=== PATIENT | male | born 1965 | race American Indian/Alaskan Native ===

== ENCOUNTER 2021-03-14 07:07 | Emergency (ER) | payer OTHER ==
--- NOTE | 2021-03-14 07:11 | Emergency Department Report ---
ED Neuro Deficit HPI - General Chief Complaint: Neuro Symptoms/Deficit Stated Complaint: Left-sided facial droop, right arm numbness, nausea and vomiting Time Seen by Provider: 03/14/21 07:10 Source: patient, EMS (Verbal report received from emergency medical services. EMS documentation not available at time of chart dictation ), RN notes reviewed, old records reviewed Mode of arrival: Stretcher Limitations: Physical Limitation - History of Present Illness Initial Comments: The patient was evaluated in the emergency department for symptoms described in the history of present illness. He/she was evaluated in the context of the global COVID-19 pandemic, which necessitated consideration that the patient might be at risk for infection with the virus that causes COVID-19. Institutional protocols and algorithms that pertain to the evaluation of p atients at risk for COVID-19 are in a state of rapid change based on information released by regulatory bodies including the CDC and federal and state organizations. These policies and algorithms were followed during the patient's care in the emergency department. Please note that these policies, procedures and recommendations changed on a rapid basis. Primary CARE doctor: Douglas ortiz. The patient is a 55-year-old gentleman. He is not known to myself previously. He appears to have a history of hypertension. As per EMS documentation, they responded to a call for left-sided weakness and dizziness for 10 hours. Patient's last known well time is 9:00 PM, March 13, 2021. Patient states that he felt like he had left-sided facial droop, with dizziness, and right arm numbness. He denies physical pain. He denies Covid symptomatology. While in the emergency room, he developed nausea and vomiting. EMS did not perform an Accu-Chek in the field. A code stroke is called overhead. A noncontrast CT scan of the brain is negative for acute findings. Patient actively vomiting in the ER, with a blood pressure 225/140. Not a TPA candidate as symptoms greater in duration than 4.5 hours. This is unlikely to be a large vessel occlusion given exam and NIH score. However, emergent CT angiogram is recommended by our consulting neurologist, Dr. Vernon. Given initial hypertension, antihypertensive control is recommended. Labetalol ordered, blood pressure now improved, 212/109, felt improved after Zofran. CT angiogram head and neck pending at this time. -: Sudden, hour(s) Location: left face, right arm Presenting Symptoms: Present: Facial Droop/Numbness History of same: No Place: home Severity: severe Quality: numb Improves With: none Worsens With: none On Anticoagulants: No Context: sudden onset - Related Data Home Medications: Home Medications Medication Instructions Recorded Confirmed Last Taken Aspirin 325 mg PO QDAY 11/22/15 12/21/15 12/21/15 Pantoprazole [Protonix TAB] 40 mg PO QDAY 11/22/15 12/21/15 11/22/15 Metoprolol Xl [Metoprolol 100 mg PO QDAY 12/21/15 12/21/15 12/21/15 SUCCINATE ER TAB] cloNIDine [Catapres] 0.1 mg PO QHS PRN 12/21/15 12/21/15 Unknown hydroCHLOROthiazide [Hctz] 12.5 mg PO QDAY 12/21/15 12/21/15 12/21/15 Previous Rx's Medication Instructions Recorded Last Taken Type AtorvaSTATin [Lipitor] 20 mg PO QHS #30 tablet 11/23/15 12/20/15 Rx Losartan/Hydrochlorothiazide 1 each PO QDAY #30 tablet 11/23/15 Unknown Rx [Hyzaar 100-25 TAB] Allergies/Adverse Reactions: Allergies Allergy/AdvReac Type Severity Reaction Status Date / Time No Known Allergies Allergy Unverified 11/22/15 12:32 ED Review of Systems ROS: Stated complaint: LEFT SIDED WEAKNESS Other details as noted in HPI Constitutional: other (Denies loss of taste and smell). denies: fever Eyes: denies: eye discharge Respiratory: denies: cough Cardiovascular: denies: chest pain Gastrointestinal: nausea, vomiting. denies: abdominal pain Musculoskeletal: denies: back pain Neurological: weakness, numbness Hematological/Lymphatic: denies: easy bleeding ED Past Medical Hx - Past Medical History Hx Hypertension: Yes Hx Congestive Heart Failure: No Hx Diabetes: No Hx Asthma: No Hx COPD: No - Surgical History Additional Surgical History: INGROWN TOENAIL - Social History Smoking Status: Never Smoker Substance Use Type: None - Medications Home Medications: Home Medications Medication Instructions Recorded Confirmed Last Taken Type Aspirin 325 mg PO QDAY 11/22/15 12/21/15 12/21/15 History Pantoprazole [Protonix TAB] 40 mg PO QDAY 11/22/15 12/21/15 11/22/15 History AtorvaSTATin [Lipitor] 20 mg PO QHS #30 tablet 11/23/15 12/21/15 12/20/15 Rx Losartan/Hydrochlorothiazide 1 each PO QDAY #30 tablet 11/23/15 Unknown Rx [Hyzaar 100-25 TAB] Metoprolol Xl [Metoprolol 100 mg PO QDAY 12/21/15 12/21/15 12/21/15 History SUCCINATE ER TAB] cloNIDine [Catapres] 0.1 mg PO QHS PRN 12/21/15 12/21/15 Unknown History hydroCHLOROthiazide [Hctz] 12.5 mg PO QDAY 12/21/15 12/21/15 12/21/15 History ED Neuro Physical Exam - General Limitations: Physical Limitation General appearance: alert, anxious, obese Suspected Stroke: Yes - Head Head exam: Present: atraumatic, normocephalic - Eye Eye exam: Present: normal appearance, EOMI. Absent: nystagmus - ENT ENT exam: Present: normal exam, normal orophraynx, mucous membranes moist, normal external ear exam, other (There is left-sided facial droop. There is left side forehead paralysis) - Neck Neck exam: Present: normal inspection, full ROM. Absent: tenderness, meningismus - Respiratory Respiratory exam: Present: normal lung sounds bilaterally. Absent: respiratory distress, wheezes, rales, rhonchi, stridor, decreased breath sounds - Cardiovascular Cardiovascular Exam: Present: regular rate, normal rhythm, normal heart sounds. Absent: bradycardia, tachycardia, irregular rhythm, systolic murmur, diastolic murmur, rubs, gallop - GI/Abdominal GI/Abdominal exam: Present: soft. Absent: distended, tenderness, guarding, rebound, rigid, pulsatile mass - Rectal Rectal exam: Present: deferred - Extremities Exam Extremities exam: Present: normal inspection, full ROM, other (2+ pulses noted in the bilateral upper and lower extremities. There is no palpable cord. negative Homans sign. Muscular compartments are soft. The pelvis is stable.). Absent: pedal edema, calf tenderness - Back Exam Back exam: Present: normal inspection. Absent: tenderness, CVA tenderness (R), CVA tenderness (L), paraspinal tenderness, vertebral tenderness - Neurological Exam Neurological exam: Present: alert, oriented X3, motor sensory deficit (There is decreased sensation to light touch in the right arm.), other (There is left- sided facial droop. The tongue is midline. The extraocular movements are intact bilaterally. There is 5 out of 5 strength in 4 extremities.) - NIHSS Assessment Interval: Baseline 1a. Level of Consciousness: alert/keenly responsive 1b. LOC Questions: answers both correctly 1c. LOC Commands: performs tasks correctly 2. Best Gaze: normal 3. Visual: no visual loss 4. Facial Palsy: unilateral complete paralysis 5b. Motor Arm Right: no drift 5a. Motor Arm Left: no drift 6a. Motor Leg Left: no drift 6b. Motor Leg Right: no drift 7. Limb Ataxia: absent 8. Sensory: mild/moderate sensory loss 9. Best Language: no aphasia 10. Dysarthria: normal 11. Extinction/Inattention: no abnormality Total Score: 4 Stroke Severity: Minor Stroke - Psychiatric Psychiatric exam: Present: anxious - Skin Skin exam: Present: warm, dry, intact, normal color. Absent: rash ED Course Vital Signs 03/14/21 03/14/21 03/14/21 07:43 07:45 08:01 Temperature Pulse Rate 95 H 93 H 83 Respiratory 11 L 19 18 Rate Blood Pressure 235/138 212/113 O2 Sat by Pulse 97 96 Oximetry 03/14/21 03/14/21 08:15 08:38 Temperature 97.6 F Pulse Rate 76 Respiratory 17 Rate Blood Pressure 198/107 O2 Sat by Pulse 94 Oximetry - Reevaluation(s) Reevaluation #1: 03/14/21 08:20 Differential diagnosis, including but not limited to: June's palsy, stroke, hypertensive urgency/emergency Assessment and plan: 55-year-old gentleman, with left-sided facial droop and numbness, forehead paralysis, right-sided numbness, elevated blood pressure, with nausea and vomiting. Not a TPA candidate as symptoms present for greater than 4.5 hours. NIH score of 4. This is unlikely to be a large vessel occlusion or dissection. However, we will obtain emergent CT angiogram head and neck. Antihypertensive therapy was administered, blood pressure is improved. Disposition as per CT angiogram. We will also discussed with the [facility]. Have discussed this plan of care with the patient, who articulated understanding. 03/14/21 10:13 CT angiogram head and neck negative for acute findings. Contacted [facility] physician, Dr. Lobo, discussed patient's history, physical, pertinent laboratory studies, imaging findings, and overall clinical impression. Dr. Bette Orr is accepting MD at [facility]. Patient updated on plan of care and findings. - Lab Data Result diagrams: 03/14/21 07:47 03/14/21 07:47 Lab Results 03/14/21 03/14/21 03/14/21 Range/Units 07:47 07:47 07:47 WBC 8.9 (4.5-11.0) K/mm3 RBC 4.91 (3.65-5.03) M/mm3 Hgb 15.7 H (11.8-15.2) gm/dl Hct 45.4 (35.5-45.6) % MCV 92 (84-94) fl MCH 32 (28-32) pg MCHC 35 H (32-34) % RDW 15.0 (13.2-15.2) % Plt Count 174 (140-440) K/mm3 Lymph % (Auto) 9.0 L (13.4-35.0) % [place] % (Auto) 3.1 (0.0-7.3) % Eos % (Auto) 0.0 (0.0-4.3) % Baso % (Auto) 0.2 (0.0-1.8) % Lymph # (Auto) 0.8 L (1.2-5.4) K/mm3 [place] # (Auto) 0.3 (0.0-0.8) K/mm3 Eos # (Auto) 0.0 (0.0-0.4) K/mm3 Baso # (Auto) 0.0 (0.0-0.1) K/mm3 Seg Neutrophils % 87.7 H (40.0-70.0) % Seg Neutrophils # 7.8 H (1.8-7.7) K/mm3 PT 13.0 (12.2-14.9) Sec. INR 0.92 (0.87-1.13) APTT 30.9 (24.2-36.6) Sec. Thrombin Time 18.0 (15.1-19.6) Sec. Sodium 139 (137-145) mmol/L Potassium 3.8 (3.6-5.0) mmol/L Chloride 100.5 (98-107) mmol/L Carbon Dioxide 20 L (22-30) mmol/L Anion Gap 22 mmol/L BUN 17 (9-20) mg/dL Creatinine 0.8 (0.8-1.3) mg/dL Estimated GFR > 60 ml/min BUN/Creatinine Ratio 21 % Glucose 143 H (75-100) mg/dL Calcium 9.3 (8.4-10.2) mg/dL Magnesium 2.30 (1.7-2.3) mg/dL Total Bilirubin 0.30 (0.1-1.2) mg/dL AST 25 (5-40) units/L ALT 20 (7-56) units/L Alkaline Phosphatase 89 (35-129) units/L Total Creatine Kinase 111 (55-170) units/L CK-MB (CK-2) 3.1 (0.0-4.0) ng/mL CK-MB (CK-2) Rel Index 2.7 (0-4) Troponin T < 0.010 (0.00-0.029) ng/mL Total Protein 8.2 (6.3-8.2) g/dL Albumin 4.5 (3.9-5) g/dL Albumin/Globulin Ratio 1.2 % Plasma/Serum Alcohol (0-0.07) % // Range/Units 07:47 WBC (4.5-11.0) K/mm3 RBC (3.65-5.03) M/mm3 Hgb (11.8-15.2) gm/dl Hct (35.5-45.6) % MCV (84-94) fl MCH (28-32) pg MCHC (32-34) % RDW (13.2-15.2) % Plt Count (140-440) K/mm3 Lymph % (Auto) (13.4-35.0) % [place] % (Auto) (0.0-7.3) % Eos % (Auto) (0.0-4.3) % Baso % (Auto) (0.0-1.8) % Lymph # (Auto) (1.2-5.4) K/mm3 [place] # (Auto) (0.0-0.8) K/mm3 Eos # (Auto) (0.0-0.4) K/mm3 Baso # (Auto) (0.0-0.1) K/mm3 Seg Neutrophils % (40.0-70.0) % Seg Neutrophils # (1.8-7.7) K/mm3 PT (12.2-14.9) Sec. INR (0.87-1.13) APTT (24.2-36.6) Sec. Thrombin Time (15.1-19.6) Sec. Sodium (137-145) mmol/L Potassium (3.6-5.0) mmol/L Chloride (98-107) mmol/L Carbon Dioxide (22-30) mmol/L Anion Gap mmol/L BUN (9-20) mg/dL Creatinine (0.8-1.3) mg/dL Estimated GFR ml/min BUN/Creatinine Ratio % Glucose (75-100) mg/dL Calcium (8.4-10.2) mg/dL Magnesium (1.7-2.3) mg/dL Total Bilirubin (0.1-1.2) mg/dL AST (5-40) units/L ALT (7-56) units/L Alkaline Phosphatase (35-129) units/L Total Creatine Kinase (55-170) units/L CK-MB (CK-2) (0.0-4.0) ng/mL CK-MB (CK-2) Rel Index (0-4) Troponin T (0.00-0.029) ng/mL Total Protein (6.3-8.2) g/dL Albumin (3.9-5) g/dL Albumin/Globulin Ratio % Plasma/Serum Alcohol < 0.01 (0-0.07) % Vital Signs 03/14/21 03/14/21 03/14/21 07:43 07:45 08:01 Temperature Pulse Rate 95 H 93 H 83 Respiratory 11 L 19 18 Rate Blood Pressure 235/138 212/113 O2 Sat by Pulse 97 96 Oximetry 03/14/21 03/14/21 08:15 08:38 Temperature 97.6 F Pulse Rate 76 Respiratory 17 Rate Blood Pressure 198/107 O2 Sat by Pulse 94 Oximetry Lab Results 03/14/21 03/14/21 03/14/21 Range/Units 07:47 07:47 07:47 WBC 8.9 (4.5-11.0) K/mm3 RBC 4.91 (3.65-5.03) M/mm3 Hgb 15.7 H (11.8-15.2) gm/dl Hct 45.4 (35.5-45.6) % MCV 92 (84-94) fl MCH 32 (28-32) pg MCHC 35 H (32-34) % RDW 15.0 (13.2-15.2) % Plt Count 174 (140-440) K/mm3 Lymph % (Auto) 9.0 L (13.4-35.0) % [place] % (Auto) 3.1 (0.0-7.3) % Eos % (Auto) 0.0 (0.0-4.3) % Baso % (Auto) 0.2 (0.0-1.8) % Lymph # (Auto) 0.8 L (1.2-5.4) K/mm3 [place] # (Auto) 0.3 (0.0-0.8) K/mm3 Eos # (Auto) 0.0 (0.0-0.4) K/mm3 Baso # (Auto) 0.0 (0.0-0.1) K/mm3 Seg Neutrophils % 87.7 H (40.0-70.0) % Seg Neutrophils # 7.8 H (1.8-7.7) K/mm3 PT 13.0 (12.2-14.9) Sec. INR 0.92 (0.87-1.13) APTT 30.9 (24.2-36.6) Sec. Thrombin Time 18.0 (15.1-19.6) Sec. Sodium 139 (137-145) mmol/L Potassium 3.8 (3.6-5.0) mmol/L Chloride 100.5 (98-107) mmol/L Carbon Dioxide 20 L (22-30) mmol/L Anion Gap 22 mmol/L BUN 17 (9-20) mg/dL Creatinine 0.8 (0.8-1.3) mg/dL Estimated GFR > 60 ml/min BUN/Creatinine Ratio 21 % Glucose 143 H (75-100) mg/dL Calcium 9.3 (8.4-10.2) mg/dL Magnesium 2.30 (1.7-2.3) mg/dL Total Bilirubin 0.30 (0.1-1.2) mg/dL AST 25 (5-40) units/L ALT 20 (7-56) units/L Alkaline Phosphatase 89 (35-129) units/L Total Creatine Kinase 111 (55-170) units/L CK-MB (CK-2) 3.1 (0.0-4.0) ng/mL CK-MB (CK-2) Rel Index 2.7 (0-4) Troponin T < 0.010 (0.00-0.029) ng/mL Total Protein 8.2 (6.3-8.2) g/dL Albumin 4.5 (3.9-5) g/dL Albumin/Globulin Ratio 1.2 % Plasma/Serum Alcohol (0-0.07) % // Range/Units 07:47 WBC (4.5-11.0) K/mm3 RBC (3.65-5.03) M/mm3 Hgb (11.8-15.2) gm/dl Hct (35.5-45.6) % MCV (84-94) fl MCH (28-32) pg MCHC (32-34) % RDW (13.2-15.2) % Plt Count (140-440) K/mm3 Lymph % (Auto) (13.4-35.0) % [place] % (Auto) (0.0-7.3) % Eos % (Auto) (0.0-4.3) % Baso % (Auto) (0.0-1.8) % Lymph # (Auto) (1.2-5.4) K/mm3 [place] # (Auto) (0.0-0.8) K/mm3 Eos # (Auto) (0.0-0.4) K/mm3 Baso # (Auto) (0.0-0.1) K/mm3 Seg Neutrophils % (40.0-70.0) % Seg Neutrophils # (1.8-7.7) K/mm3 PT (12.2-14.9) Sec. INR (0.87-1.13) APTT (24.2-36.6) Sec. Thrombin Time (15.1-19.6) Sec. Sodium (137-145) mmol/L Potassium (3.6-5.0) mmol/L Chloride (98-107) mmol/L Carbon Dioxide (22-30) mmol/L Anion Gap mmol/L BUN (9-20) mg/dL Creatinine (0.8-1.3) mg/dL Estimated GFR ml/min BUN/Creatinine Ratio % Glucose (75-100) mg/dL Calcium (8.4-10.2) mg/dL Magnesium (1.7-2.3) mg/dL Total Bilirubin (0.1-1.2) mg/dL AST (5-40) units/L ALT (7-56) units/L Alkaline Phosphatase (35-129) units/L Total Creatine Kinase (55-170) units/L CK-MB (CK-2) (0.0-4.0) ng/mL CK-MB (CK-2) Rel Index (0-4) Troponin T (0.00-0.029) ng/mL Total Protein (6.3-8.2) g/dL Albumin (3.9-5) g/dL Albumin/Globulin Ratio % Plasma/Serum Alcohol < 0.01 (0-0.07) % - EKG Data -: EKG Interpreted by Wi EKG shows normal: sinus rhythm Rate: normal 03/14/21 08:14 EKG interpreted at 07: 44 This is a sinus rhythm, with a left axis deviation, left anterior fascicular blo ck, right bundle branch block, and left ventricular hypertrophy the QTC is 464 ms. EKG is abnormal. The EKG is not a STEMI. There is no change from prior EKG from 12/21/2015 - Radiology Data Radiology results: pending, report reviewed, image reviewed [facility] [address] [place] [address] Cat Scan Report Signed Patient: GREGORY GONZALES MR#: [id number] : 1965 Acct:[id number] Age/Sex: 55 / M ADM Date: 03/14/21 Loc: ED Attending Dr: Ordering Physician: RIKKI ANDERSON MD Date of Service: 03/14/21 Procedure(s): CT head/brain wo con Accession Number(s): [id number] cc: RIKKI ANDERSON MD CT HEAD WITHOUT CONTRAST HISTORY: MAIN COMPARISON: None TECHNIQUE: CT imaging of the head was performed in the axial, sagittal, and coronal projections and bone algorithm in axial projection in the soft tissue algorithm. All CT scans at this location are performed using CT dose reduction for ALARA by means of automated exposure control. CONTRAST: None. FINDINGS: Cerebral and Cerebellar Hemispheres: Previous lacunar infarct left putamen-external capsule region No evidence of mass or mass effect. No midline shift. No acute hemorrhage. No acute cortical infarction. No extra-axial fluid collection. Ventricles: Normal in size and configuration for age. Osseous Structures: No significant abnormality. Visualized Paranasal Sinuses: No significant abnormality. Additional Findings: None IMPRESSION: 1. No acute intracranial abnormality. Please see comments NOTE: Acute infarct may not be visible by noncontrast CT. CRITICAL RESULT: Stroke protocol Time of Discovery: 6:15 Central time Time of Communication: 617 Central time Licensed Practitioner Receiving Report: Dr. Anderson was notified of f indings personally Read Back Performed: Yes. Signer Name: Deep Andres MD Signed: 03/14/2021 7:28 AM Workstation Name: [id number] Transcribed By: WG Dictated By: Deep Andres MD Electronically Authenticated By: Deep Andres MD Signed Date/Time: 03/14/21727 DD/ 0 CT angiogram head and neck negative for acute findings. CTA HEAD WITH CONTRAST HISTORY: Facial droop, weakness, unsteady gait COMPARISON: None. TECHNIQUE: Routine non-contrast CT Head, CTA of the head and post-contrast CT Head are performed. 3-D/MIP reformats postprocessed. All CT scans at this location are performed using CT dose reduction for ALARA by means of automated exposure control CONTRAST: 100 ml of Omnipaque 350 FINDINGS: CTA Head: Intracranial vertebral arteries: No significant abnormality. Basilar artery: No significant abnormality. Posterior cerebral arteries: No significant abnormality. Intracranial internal carotid arteries: Narrowing of the internal carotid arteries bilaterally at the clinoidal and ophthalmic segments, more on the left side Anterior cerebral arteries: No significant abnormality. Middle cerebral arteries: No significant abnormality. Dural venous sinuses:Not optimally opacified. No significant abnormality. Additional findings: Less than 50% narrowing in the left pericallosal artery IMPRESSION: 1. No significant abnormality. Signer Name: Gallito Lou MD Signed: 03/14/2021 8:01 AM Workstation Name: [id number] CTA NECK WITH CONTRAST HISTORY: Facial droop; weakness; unsteady gait COMPARISON: None. TECHNIQUE: Routine CTA of the neck was performed. 3-D/MIP reformats were postprocessed. Percentage stenosis is determined by direct quantitative measurements of diseased internal carotid artery diameter compared with normal distal internal carotid artery reference segments or by criteria similar to NASCET where applicable.All CT scans at this location are performed using CT dose reduction for ALARA by means of automated exposure control CONTRAST: 100 ml of Omnipaque 350 FINDINGS: Aortic arch: No significant abnormality. Cervical vertebral arteries: No significant abnormality. Common carotid arteries: No significant abnormality. Carotid bifurcations: Normal bilaterally Cervical internal carotid arteries: No significant abnormality. Additional findings: None. IMPRESSION: 1. No significant abnormality. Signer Name: Gallito Lou MD Signed: 03/14/2021 7:54 AM Workstation Name: [id number] - Core Measures Measure Exclusions: not indicated - Thrombolytic Inclusion/Exclusion Thrombolytic Exclusion Criteria: Symptom Onset > 3 Hours Critical Care Time: Yes Critical care time in (mins) excluding proc time.: 35 Critical care attestation.: If time is entered above; I have spent that time in minutes in the direct care of this critically ill patient, excluding procedure time. ED Disposition Clinical Impression: Hypertensive urgency, malignant, Facial droop, Right arm numbness, Nausea and vomiting Disposition: DC/TX-02 [facility] IP Is pt being admited?: No Does the pt Need Aspirin: Yes Condition: Serious Referrals: GABRIELLA POSADA [Other] - 3-5 Days
--- NOTE | 2021-03-14 07:25 | Consultation ---
Medications and Allergies Allergies Allergy/AdvReac Type Severity Reaction Status Date / Time No Known Allergies Allergy Unverified 11/22/15 12:32 Home Medications Medication Instructions Recorded Confirmed Last Taken Type Aspirin 325 mg PO QDAY 11/22/15 12/21/15 12/21/15 History Pantoprazole [Protonix TAB] 40 mg PO QDAY 11/22/15 12/21/15 11/22/15 History AtorvaSTATin [Lipitor] 20 mg PO QHS #30 tablet 11/23/15 12/21/15 12/20/15 Rx Losartan/Hydrochlorothiazide 1 each PO QDAY #30 tablet 11/23/15 Unknown Rx [Hyzaar 100-25 TAB] Metoprolol Xl [Metoprolol 100 mg PO QDAY 12/21/15 12/21/15 12/21/15 History SUCCINATE ER TAB] cloNIDine [Catapres] 0.1 mg PO QHS PRN 12/21/15 12/21/15 Unknown History hydroCHLOROthiazide [Hctz] 12.5 mg PO QDAY 12/21/15 12/21/15 12/21/15 History Assessment and Plan [facility] Consult Note # Demographics Consult Type: Acute Stroke Level 2 (4.5-24 hrs) Patient Location: Emergency Room First Name: Ady Last Name: Karen Date of : 1965 Age: 55 Gender: Male Time of Initial Page ( Time): 03/14/2021, 07:09 Time of Return Call ( Time): 03/14/2021, 07:10 # HPI History: 55M with last normal 21:30 last night, right numbness and left face weakness. Says he was on floor all night, had been vomiting. # Scores Time of exam and NIHSS ( Time): 03/14/2021, 07:18 Level of Consciousness 1a: [0] = Alert; keenly responsive LOC Questions 1b: [0] = Answers both questions correctly LOC Commands 1c: [0] = Performs both tasks correctly Best Gaze 2: [0] = Normal Visual 3: [0] = No visual loss Facial Palsy 4: [3] = Complete paralysis Motor Arm Left 5a: [0] = No drift Motor Arm Right 5b: [0] = No drift Motor Leg Left 6a: [0] = No drift Motor Leg Right 6b: [0] = No drift Limb Ataxia 7: [0] = Absent Sensory 8: [1] = Vodx-mu-rzzamxel sensory loss Best Language 9: [0] = No aphasia Dysarthria 10: [0] = Normal Extinction and Inattention 11: [0] = No abnormality NIHSS Total: 4 # Exam SBP: 230 DBP: 130 Additional Neurologic Exam: 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 # PMH-FH-SH Past Medical History: hypertension # Data Time Head CT personally read by me (Eastern Time): 03/14/2021, 07:[address]: no bleed preliminarily reviewed by me, please refer to radiology read for official reading left side thalamic lacunar stroke appears subacute or chronic # Assessment Impression: Ischemic Stroke (Acute) # Plan Thrombolytic/Intervention: NOT IV Thrombolytic or IA Intervention Thrombolytic Exclusion (< 3 hour window): time of onset unclear Thrombolytic Exclusion: > 4.5 hours Intraarterial Exclusion: clinically consistent with small vessel disease pending CTA head/neck. Target Blood Pressure: SBP < 220 Imaging: (urgency: STAT): CT Angiogram Head and CT Angiogram Neck Imaging: (urgency: routine): MRI Brain without contrast Diagnostic Test: echo with bubble study Medication: aspirin 81 mg PLUS clopidogrel (Plavix) 75 mg for 21 days, then monotherapy therafter start statin with goal of LDL < 70 Other: LDL < 70 permissive hypertension telemetry monitoring I have discussed my recommendations with the referring provider Disposition: admit # Logistics Telemedicine: Interactive 2 way audio and visual telecommunication technology w as utilized during this visit
--- NOTE | 2021-03-14 07:32 | Cat Scan Report ---
CT HEAD WITHOUT CONTRAST HISTORY: MAIN COMPARISON: None TECHNIQUE: CT imaging of the head was performed in the axial, sagittal, and coronal projections and bone algori thm in axial projection in the soft tissue algorithm. All CT scans at this location are performed using CT dose reduction for ALARA by means of automated e xposure control. CONTRAST: None. FINDINGS: Cerebral and Cerebellar Hemispheres: Previous lacunar infarct left putamen-external capsule region No evidence of mass or mass effect. No midline shift. No acute hemorrhage. No acute cortical infar ction. No extra-axial fluid collection. Ventricles: Normal in size and configuration for age. Osseous Structures: No significant abnormality. Visualized Paranasal Sinuses: No significant abnormality. Additional Findings: None IMPRESSION: 1. No acute intracranial abnormality. Please see comments NOTE: Acute infarct may not be visible by noncontrast CT. CRITICAL RESULT: Stroke protocol Time of Discovery: 6:15 Central time Time of Communication: 617 Central time Licensed Practitioner Receiving Report: Dr. Anderson was notified of findings personally Read Back Performed: Yes. Signer Name: Deep Andres MD Signed: 03/14/2021 7:28 AM Workstation Name: [id number]
[2021-03-14] MEDS ORDERED: ONDANSETRON 4 MG/2 ML INJ IV ONE (07:34)
[2021-03-14] MEDS ORDERED: LACTATED RINGERS 1,000 ML IV ONE (07:52)
[2021-03-14 08:02] LABS: Basophils % (Auto) 0.2 % (0.0-1.8); Hematocrit 45.4 % (35.5-45.6); Hemoglobin 15.7 gm/dl (11.8-15.2); Lymphocytes # (Auto) 0.8 K/mm3 (1.2-5.4); Mean Corpuscular HGB Conc 35 % (32-34); Mean Corpuscular Volume 92 fl (84-94); Monocytes # (Auto) 0.3 K/mm3 (0.0-0.8); Monocytes % (Auto) 3.1 % (0.0-7.3); Platelet Count 174 K/mm3 (140-440); Red Blood Count 4.91 M/mm3 (3.65-5.03)
[2021-03-14 08:13] LABS: INR 0.92 (0.87-1.13)
[2021-03-14 08:14] LABS: Partial Thromboplastin Time 30.9 Sec. (24.2-36.6)
[2021-03-14 08:18] LABS: Creatine Kinase MB 3.1 ng/mL (0.0-4.0)
[2021-03-14 08:48] LABS: Alanine Aminotransferase 20 units/L (7-56); Albumin 4.5 g/dL (3.9-5); BUN/Creatinine Ratio 21; Blood Urea Nitrogen 17 mg/dL (9-20); Calcium 9.3 mg/dL (8.4-10.2); Hemolysis Index 92
--- NOTE | 2021-03-14 08:59 | Cat Scan Report ---
CTA NECK WITH CONTRAST HISTORY: Facial droop; weakness; unsteady gait COMPARISON: None. TECHNIQUE: Routine CTA of the neck was performed. 3-D/MIP reformats were postprocessed. Percentage s tenosis is determined by direct quantitative measurements of diseased internal carotid artery diamete r compared with normal distal internal carotid artery reference segments or by criteria similar to NA SCET where applicable.All CT scans at this location are performed using CT dose reduction for ALARA b y means of automated exposure control CONTRAST: 100 ml of Omnipaque 350 FINDINGS: Aortic arch: No significant abnormality. Cervical vertebral arteries: No significant abnormality. Common carotid arteries: No significant abnormality. Carotid bifurcations: Normal bilaterally Cervical internal carotid arteries: No significant abnormality. Additional findings: None. IMPRESSION: 1. No significant abnormality. Signer Name: Gallito Lou MD Signed: 03/14/2021 8:54 AM Workstation Name: [id number]
--- NOTE | 2021-03-14 09:06 | Cat Scan Report ---
CTA HEAD WITH CONTRAST HISTORY: Facial droop, weakness, unsteady gait COMPARISON: None. TECHNIQUE: Routine non-contrast CT Head, CTA of the head and post-contrast CT Head are performed. 3-D /MIP reformats postprocessed. All CT scans at this location are performed using CT dose reduction for ALARA by means of automated exposure control CONTRAST: 100 ml of Omnipaque 350 FINDINGS: CTA Head: Intracranial vertebral arteries: No significant abnormality. Basilar artery: No significant abnormality. Posterior cerebral arteries: No significant abnormality. Intracranial internal carotid arteries: Narrowing of the internal carotid arteries bilaterally at the clinoidal and ophthalmic segments, more on the left side Anterior cerebral arteries: No significant abnormality. Middle cerebral arteries: No significant abnormality. Dural venous sinuses:Not optimally opacified. No significant abnormality. Additional findings: Less than 50% narrowing in the left pericallosal artery IMPRESSION: 1. No significant abnormality. Signer Name: Gallito Lou MD Signed: 03/14/2021 9:01 AM Workstation Name: [id number]
[2021-03-14] MEDS ORDERED: ASPIRIN 325 MG TAB PO ONE (09:52)
[2021-03-14 11:19] VITALS: BP 206/126
--- NOTE | 2021-03-15 10:07 | Electrocardiograph Report ---
[facility] Test Date: 2021-03-14 Test Time: 08:03:47 Pat Name: GREGORY GONZALES Department: Room: Gender: M Ware Server: NEENA : 1965 Requested By: RIKKI WHITLEY Order Number: [id number] Reading MD: Zhen Yan Measurements Intervals [place] Rate: 96 P: 60 ID: [id number] QRS: 60 QRSD: 110 T: 35 QT: 399 QTc: 503 Interpretive Statements Sinus rhythm Low voltage, precordial leads Probable anteroseptal infarct, old Prolonged QT interval No previous ECG available for comparison Electronically Signed On 03-15-2021 10:06:50 EDT by Zhen Yan
== END 2021-03-14 11:15 | disposition short-term general hospital (02) ==
LOC: ED 07:07
DX: I10 Essential (primary) hypertension (principal); R29.810 Facial weakness; F41.9 Anxiety disorder, unspecified; Z79.82 Long term (current) use of aspirin; R79.1 Abnormal coagulation profile; R11.2 Nausea with vomiting, unspecified; Z79.899 Other long term (current) drug therapy
CPT/HCPCS: 36415; 70450; 70496; 70498; 80053; 82550; 82553; 82962; 83735; 84484; 85025; 85610; 85670; 85730; 93005; 96361; 96374; 96375; 96376; 99291; J2405; J7120; Q9967; 80320; G0480